=== PATIENT | male | born 1960 | race Caucasian/White ===

== ENCOUNTER 2017-05-18 05:26 | Day surgery (SDC) | payer BC, OTHER ==
[~2017-05-18] VITALS: Ht 182.9 cm; Wt 110.2 kg
--- NOTE | ~2017-05-18 | O ---
[facility] [place] [address] OPERATIVE REPORT Name: BELINDA GALAN Room #: [facility] Jeanine#: [id number] Admission: 05/18/17 Attend Phys: Jd Crump Discharge: 05/18/17 Date of : 56 Report #: [id number] THIS REPORT FOR: //name// CC: Jd Dunlap DATE OF SERVICE: 05/18/2017 PREOPERATIVE DIAGNOSES: Right shoulder pain, high-grade partial thickness rotator cuff tear, with shoulder osteoarthritis. POSTOPERATIVE DIAGNOSES: Right shoulder rotator cuff tear, medium-sized full-thickness; complex labral tear; mild glenohumeral joint chondromalacia; subacromial bursitis and impingement syndrome. PROCEDURES PERFORMED: Right shoulder arthroscopy, rotator cuff repair, subacromial decompression and extensive debridement. SURGEON: Jd Woody M.D. BARREL DRILLER: Heidi Sorensen PA-C. ANESTHESIA: General with preoperative interscalene block, ultrasound guided. FLUIDS: 900 mL crystalloid. ESTIMATED BLOOD LOSS: 5 mL. DESCRIPTION OF PROCEDURE: After proper identification of the patient and operative site in the preoperative holding area, the operative site was signed by myself. Prophylactic antibiotics given. The patient elected to receive an interscalene block after discussing the risks, benefits, alternatives and complications with anesthesia. The patient had been cleared preoperatively by his meeting coordinator, Dr. Porras. The patient was brought back to the operative suite. After induction of satisfactory general endotracheal anesthesia, the right shoulder was examined. It was stable throughout a full arc of motion, comparable to the preoperative assessment. The patient was carefully positioned in the left lateral decubitus position. Montemayor bag and axillary roll were utilized to support the torso. The right shoulder was sterilely prepped and draped in the usual manner and placed within 10 pounds of balanced arthroscopic suspension. Posterior portal was established. Joint was insufflated with an arthroscopic pump set at 40 mmHg. An anterior superior portal was created using a spinal needle for localization. Examination of the glenohumeral joint revealed some complex labral fraying and tearing about the anterior, superior and posterior superior quadrants. [facility] [address] [place] [address] OPERATIVE REPORT Name: BELINDA GALAN Room #: [facility] Andry.#: [id number] Admission: 05/18/17 Attend Phys: Jd Crump Discharge: 05/18/17 Date of : 56 Report #: [id number] labrum was debrided with a motorized shaver. Long head of biceps tendon was intact and stable on its attachment to the superior labrum. It was stable within the groove. No evidence of groove pathology was noted when it was pulled into the joint. Some mild chondral thinning and fibrillation was noted of the superior glenoid and superior humeral head. This fibrillated tissue was carefully debrided. Some intra-articular synovitis was also noted and this was carefully debrided. Upper border of the subscapularis was intact. There was evidence of a full-thickness, minimally retracted rotator cuff tear involving the more anterior supraspinatus. The remainder of the cuff tendons were intact. Arthroscope was then introduced in the subacromial space, where mildly thickened subacromial bursa was encountered. This was resected with a motorized shaver. There was fraying on the undersurface of the coracoacromial arch and prominence to the acromion was removed using a motorized bur. Approximately 3 mm of bone was resected here. The rotator cuff demonstrated a full-thickness medium-sized tear. It was approximately 15 mm in width. Some delamination was noted of its more anterior fibers of the supraspinatus. The rotator cuff footprint was debrided carefully with a sharp ring curette and motorized shaver. An additional lateral and posterolateral portal had been created. Through a separate portal of the lateral border of the acromion, a triple-loaded 5.5 mm [employer] [place] was inserted into its pre-tapped hole. This had excellent purchase. These limbs were passed in a horizontal mattress fashion, incorporating the delaminated portion of the tear. These were then tied and then a separate lateral row anchor was utilized, creating a double row construct. Repair construct was stable to probing. It was anatomically reduced. Subacromial space thoroughly irrigated with normal saline. Portals closed with simple nylon stitch. Sterile dressing was applied. The patient will be immobilized in a sling and abduction pillow for 6 weeks postoperatively. Qualified office clerk assistant was utilized throughout the entire procedure to aid in patient limb positioning, visualization with the arthroscope instrument, suture passage as well as closure and sling application. <ELECTRONICALLY SIGNED> By: Jd Woody MD 06/01/17 [id number] Jd Woody MD /iris
[~2017-05-18 05:26] MED LIST: AMLODIPINE BESY10 MG PO; ASPIR 8181 MG PO; AUGMENTIN 875875 MG PO; BENICAR20 MG PO; BYSTOLIC 5 MG5 MG; CARVEDILOL12.5 MG PO; DOXYCYCLINE 10100 MG PO; FISH OIL 1,001000 M2 PO; GLUCOPHAGE500 MG PO; HYDROCHLOROTH12.5 MG PO; HYDROCODON-ACE1 EAC8 PO; LIVALO4 MG PO; NEURONTIN 300300 M1 PO; PLAVIX 75 MG TA75 M1 PO; TRADJENTA5 MG PO; VICTOZA0.6 MG/0.1 SQ
[2017-05-18 06:26] VITALS: BP 135/80
[2017-05-18 09:36] VITALS: BP 135/80
== END 2017-05-18 15:00 | disposition home or self-care (01) ==
LOC: TBA 05:26 → OR 05:26
DX: M75.101 Unspecified rotator cuff tear or rupture of right shoulder, not specified as traumatic (principal); M19.011 Primary osteoarthritis, right shoulder; M94.211 Chondromalacia, right shoulder; M75.41 Impingement syndrome of right shoulder; M75.51 Bursitis of right shoulder; F17.200 Nicotine dependence, unspecified, uncomplicated; I73.9 Peripheral vascular disease, unspecified; E78.5 Hyperlipidemia, unspecified; Z98.890 Other specified postprocedural states; Z95.1 Presence of aortocoronary bypass graft; Z90.49 Acquired absence of other specified parts of digestive tract; E11.9 Type 2 diabetes mellitus without complications
CPT/HCPCS: 50010; 50101; 50172; 50386; 50417; 50597; 50935; 50950; 51038; 51445; 51847; 53610; 54170; 55430; 56525; 56527; 56530; 62110; 62900; 70005

== ENCOUNTER → 2018-01-08 | Outpatient (CLI) | payer BC, OTHER | LOC: HYPER 07:03 | DX: E11.621 Type 2 diabetes mellitus with foot ulcer (principal); L97.511 Non-pressure chronic ulcer of other part of right foot limited to breakdown of skin; E11.40 Type 2 diabetes mellitus with diabetic neuropathy, unspecified; L84 Corns and callosities; I10 Essential (primary) hypertension; I25.10 Atherosclerotic heart disease of native coronary artery without angina pectoris; E78.00 Pure hypercholesterolemia, unspecified; Z87.891 Personal history of nicotine dependence ==

== ENCOUNTER → 2018-01-22 | Outpatient (CLI) | payer BC, OTHER | LOC: HYPER 06:58 | DX: E11.621 Type 2 diabetes mellitus with foot ulcer (principal); L97.511 Non-pressure chronic ulcer of other part of right foot limited to breakdown of skin; L84 Corns and callosities; E11.40 Type 2 diabetes mellitus with diabetic neuropathy, unspecified; E78.00 Pure hypercholesterolemia, unspecified; I25.10 Atherosclerotic heart disease of native coronary artery without angina pectoris; I10 Essential (primary) hypertension; Z87.891 Personal history of nicotine dependence; Z95.1 Presence of aortocoronary bypass graft ==

== ENCOUNTER → 2018-02-12 | Outpatient (CLI) | payer BC, OTHER | LOC: HYPER 06:50 | DX: E11.621 Type 2 diabetes mellitus with foot ulcer (principal); L97.511 Non-pressure chronic ulcer of other part of right foot limited to breakdown of skin; E11.40 Type 2 diabetes mellitus with diabetic neuropathy, unspecified; E78.00 Pure hypercholesterolemia, unspecified; I25.10 Atherosclerotic heart disease of native coronary artery without angina pectoris; I10 Essential (primary) hypertension; L84 Corns and callosities; Z87.891 Personal history of nicotine dependence; Z95.1 Presence of aortocoronary bypass graft ==

== ENCOUNTER → 2018-03-04 | Outpatient (CLI) | payer BC, OTHER | LOC: HYPER 07:11 | DX: E11.621 Type 2 diabetes mellitus with foot ulcer (principal); L97.512 Non-pressure chronic ulcer of other part of right foot with fat layer exposed; L84 Corns and callosities; E11.40 Type 2 diabetes mellitus with diabetic neuropathy, unspecified; E78.00 Pure hypercholesterolemia, unspecified; I25.10 Atherosclerotic heart disease of native coronary artery without angina pectoris; I10 Essential (primary) hypertension; Z87.891 Personal history of nicotine dependence; Z95.1 Presence of aortocoronary bypass graft ==

== ENCOUNTER → 2018-03-25 | Outpatient (CLI) | payer BC, OTHER | LOC: MRI 07:31 | DX: M86.671 Other chronic osteomyelitis, right ankle and foot (principal); M62.571 Muscle wasting and atrophy, not elsewhere classified, right ankle and foot; M77.51 Other enthesopathy of right foot and ankle ==

== ENCOUNTER → 2018-03-26 | Outpatient (CLI) | payer BC, OTHER | LOC: HYPER 06:51 | DX: E11.621 Type 2 diabetes mellitus with foot ulcer (principal); L97.511 Non-pressure chronic ulcer of other part of right foot limited to breakdown of skin; L84 Corns and callosities; E11.40 Type 2 diabetes mellitus with diabetic neuropathy, unspecified; E78.00 Pure hypercholesterolemia, unspecified; I25.10 Atherosclerotic heart disease of native coronary artery without angina pectoris; I10 Essential (primary) hypertension; Z87.891 Personal history of nicotine dependence; Z95.1 Presence of aortocoronary bypass graft ==

== ENCOUNTER → 2018-04-23 | Outpatient (CLI) | payer BC, OTHER | LOC: HYPER 06:52 | DX: E11.621 Type 2 diabetes mellitus with foot ulcer (principal); L97.511 Non-pressure chronic ulcer of other part of right foot limited to breakdown of skin; L84 Corns and callosities; E11.40 Type 2 diabetes mellitus with diabetic neuropathy, unspecified; E78.00 Pure hypercholesterolemia, unspecified; I25.10 Atherosclerotic heart disease of native coronary artery without angina pectoris; I10 Essential (primary) hypertension; Z87.891 Personal history of nicotine dependence; Z95.1 Presence of aortocoronary bypass graft ==

== ENCOUNTER → 2018-05-14 | Outpatient (CLI) | payer BC, OTHER | LOC: HYPER 06:36 | DX: E11.621 Type 2 diabetes mellitus with foot ulcer (principal); L97.511 Non-pressure chronic ulcer of other part of right foot limited to breakdown of skin; L84 Corns and callosities; E11.40 Type 2 diabetes mellitus with diabetic neuropathy, unspecified; E78.00 Pure hypercholesterolemia, unspecified; I25.10 Atherosclerotic heart disease of native coronary artery without angina pectoris; I10 Essential (primary) hypertension; Z87.891 Personal history of nicotine dependence; Z95.1 Presence of aortocoronary bypass graft ==

== ENCOUNTER → 2018-06-04 | Outpatient (CLI) | payer BC, OTHER | LOC: HYPER 07:19 | DX: E11.621 Type 2 diabetes mellitus with foot ulcer (principal); L97.512 Non-pressure chronic ulcer of other part of right foot with fat layer exposed; L84 Corns and callosities; E11.40 Type 2 diabetes mellitus with diabetic neuropathy, unspecified; E78.00 Pure hypercholesterolemia, unspecified; I25.10 Atherosclerotic heart disease of native coronary artery without angina pectoris; I10 Essential (primary) hypertension; Z87.891 Personal history of nicotine dependence; Z95.1 Presence of aortocoronary bypass graft ==

== ENCOUNTER → 2018-06-18 | Outpatient (CLI) | payer BC, OTHER | LOC: HYPER 07:07 | DX: E11.621 Type 2 diabetes mellitus with foot ulcer (principal); L97.511 Non-pressure chronic ulcer of other part of right foot limited to breakdown of skin; L84 Corns and callosities; E11.40 Type 2 diabetes mellitus with diabetic neuropathy, unspecified; E78.00 Pure hypercholesterolemia, unspecified; I25.10 Atherosclerotic heart disease of native coronary artery without angina pectoris; I10 Essential (primary) hypertension; Z87.891 Personal history of nicotine dependence; Z95.1 Presence of aortocoronary bypass graft ==

== ENCOUNTER → 2018-07-02 | Outpatient (CLI) | payer BC, OTHER | LOC: HYPER 06:45 | DX: E11.621 Type 2 diabetes mellitus with foot ulcer (principal); L97.511 Non-pressure chronic ulcer of other part of right foot limited to breakdown of skin; L84 Corns and callosities; E11.40 Type 2 diabetes mellitus with diabetic neuropathy, unspecified; E78.00 Pure hypercholesterolemia, unspecified; I25.10 Atherosclerotic heart disease of native coronary artery without angina pectoris; I10 Essential (primary) hypertension; Z87.891 Personal history of nicotine dependence; Z95.1 Presence of aortocoronary bypass graft ==

== ENCOUNTER → 2018-07-18 | Outpatient (CLI) | payer BC, OTHER | LOC: HYPER 07:02 | DX: E11.621 Type 2 diabetes mellitus with foot ulcer (principal); L97.512 Non-pressure chronic ulcer of other part of right foot with fat layer exposed; L84 Corns and callosities; E11.40 Type 2 diabetes mellitus with diabetic neuropathy, unspecified; I25.10 Atherosclerotic heart disease of native coronary artery without angina pectoris; I10 Essential (primary) hypertension; E78.00 Pure hypercholesterolemia, unspecified; Z87.891 Personal history of nicotine dependence; Z95.1 Presence of aortocoronary bypass graft ==

== ENCOUNTER → 2018-07-30 | Outpatient (CLI) | payer BC, OTHER | LOC: HYPER 06:58 | DX: E11.621 Type 2 diabetes mellitus with foot ulcer (principal); L97.511 Non-pressure chronic ulcer of other part of right foot limited to breakdown of skin; E11.40 Type 2 diabetes mellitus with diabetic neuropathy, unspecified; L84 Corns and callosities; I25.10 Atherosclerotic heart disease of native coronary artery without angina pectoris; E78.00 Pure hypercholesterolemia, unspecified; Z87.891 Personal history of nicotine dependence ==

== ENCOUNTER → 2018-08-20 | Outpatient (CLI) | payer BC, OTHER | LOC: HYPER 06:38 | DX: E11.621 Type 2 diabetes mellitus with foot ulcer (principal); L97.511 Non-pressure chronic ulcer of other part of right foot limited to breakdown of skin; L84 Corns and callosities; E11.40 Type 2 diabetes mellitus with diabetic neuropathy, unspecified; E78.00 Pure hypercholesterolemia, unspecified; I25.10 Atherosclerotic heart disease of native coronary artery without angina pectoris; I10 Essential (primary) hypertension; Z87.891 Personal history of nicotine dependence; Z95.1 Presence of aortocoronary bypass graft ==

== ENCOUNTER → 2018-09-04 | Outpatient (CLI) | payer BC, OTHER | LOC: HYPER 06:37 | DX: E11.621 Type 2 diabetes mellitus with foot ulcer (principal); L97.511 Non-pressure chronic ulcer of other part of right foot limited to breakdown of skin; E11.40 Type 2 diabetes mellitus with diabetic neuropathy, unspecified; I10 Essential (primary) hypertension; L84 Corns and callosities; I25.10 Atherosclerotic heart disease of native coronary artery without angina pectoris; E78.00 Pure hypercholesterolemia, unspecified; Z87.891 Personal history of nicotine dependence ==

== ENCOUNTER → 2018-09-10 | Outpatient (CLI) | payer BC, OTHER | LOC: MRI 07:13 | DX: M86.171 Other acute osteomyelitis, right ankle and foot (principal); E11.621 Type 2 diabetes mellitus with foot ulcer; E11.40 Type 2 diabetes mellitus with diabetic neuropathy, unspecified; L97.511 Non-pressure chronic ulcer of other part of right foot limited to breakdown of skin; I10 Essential (primary) hypertension; E78.00 Pure hypercholesterolemia, unspecified ==

== ENCOUNTER → 2018-09-12 | Outpatient (CLI) | payer BC, OTHER | LOC: HYPER 06:44 | DX: E11.621 Type 2 diabetes mellitus with foot ulcer (principal); L97.511 Non-pressure chronic ulcer of other part of right foot limited to breakdown of skin; E11.40 Type 2 diabetes mellitus with diabetic neuropathy, unspecified; L84 Corns and callosities; I25.10 Atherosclerotic heart disease of native coronary artery without angina pectoris; I10 Essential (primary) hypertension; E78.00 Pure hypercholesterolemia, unspecified; Z87.891 Personal history of nicotine dependence ==

== ENCOUNTER → 2019-10-21 | Outpatient (CLI) | payer BC | LOC: HYPER 06:21 | PROVIDERS: ATTEND Emergency Medicine | DX: E11.621 Type 2 diabetes mellitus with foot ulcer (principal); L97.511 Non-pressure chronic ulcer of other part of right foot limited to breakdown of skin; L84 Corns and callosities; E78.00 Pure hypercholesterolemia, unspecified; I25.10 Atherosclerotic heart disease of native coronary artery without angina pectoris; I10 Essential (primary) hypertension; Z87.891 Personal history of nicotine dependence; Z95.1 Presence of aortocoronary bypass graft; Z89.421 Acquired absence of other right toe(s) ==

== ENCOUNTER → 2019-12-18 | Outpatient (CLI) | payer BC | LOC: HYPER 09:16 | PROVIDERS: ATTEND Emergency Medicine | DX: E11.621 Type 2 diabetes mellitus with foot ulcer (principal); L97.511 Non-pressure chronic ulcer of other part of right foot limited to breakdown of skin; S90.821A Blister (nonthermal), right foot, initial encounter; L84 Corns and callosities; I25.10 Atherosclerotic heart disease of native coronary artery without angina pectoris; I10 Essential (primary) hypertension; E78.00 Pure hypercholesterolemia, unspecified; Z87.891 Personal history of nicotine dependence; Z95.1 Presence of aortocoronary bypass graft; Z89.421 Acquired absence of other right toe(s); X58.XXXA Exposure to other specified factors, initial encounter; Y93.89 Activity, other specified; Y92.89 Other specified places as the place of occurrence of the external cause; Y99.8 Other external cause status ==

== ENCOUNTER → 2019-12-30 | Outpatient (CLI) | payer BC | LOC: SJCVCIMAG 08:35 | PROVIDERS: ATTEND Nuclear Medicine Nuclear Cardiology | DX: I65.21 Occlusion and stenosis of right carotid artery (principal); I73.9 Peripheral vascular disease, unspecified; Z95.820 Peripheral vascular angioplasty status with implants and grafts ==

== ENCOUNTER → 2020-01-07 | Outpatient (CLI) | payer BC | LOC: HYPER 12:35 | PROVIDERS: ATTEND Emergency Medicine | DX: E11.621 Type 2 diabetes mellitus with foot ulcer (principal); L97.512 Non-pressure chronic ulcer of other part of right foot with fat layer exposed; S90.821A Blister (nonthermal), right foot, initial encounter; L84 Corns and callosities; E78.00 Pure hypercholesterolemia, unspecified; I25.10 Atherosclerotic heart disease of native coronary artery without angina pectoris; I10 Essential (primary) hypertension; Z87.891 Personal history of nicotine dependence; Z95.1 Presence of aortocoronary bypass graft; Z89.421 Acquired absence of other right toe(s); X58.XXXA Exposure to other specified factors, initial encounter; Y93.89 Activity, other specified; Y92.89 Other specified places as the place of occurrence of the external cause; Y99.8 Other external cause status ==

== ENCOUNTER → 2020-04-13 | Outpatient (CLI) | payer BC, OTHER | LOC: ULTRA 07:53 | PROVIDERS: ATTEND Family Medicine | DX: M79.89 Other specified soft tissue disorders (principal) ==

== ENCOUNTER → 2020-07-12 | Outpatient (CLI) | payer BC, OTHER | LOC: HYPER 09:08 | PROVIDERS: ATTEND Emergency Medicine Emergency Medical Services | DX: E11.621 Type 2 diabetes mellitus with foot ulcer (principal); L97.512 Non-pressure chronic ulcer of other part of right foot with fat layer exposed; S91.101A Unspecified open wound of right great toe without damage to nail, initial encounter; L84 Corns and callosities; E66.9 Obesity, unspecified; E78.00 Pure hypercholesterolemia, unspecified; I25.10 Atherosclerotic heart disease of native coronary artery without angina pectoris; I10 Essential (primary) hypertension; Z68.30 Body mass index [BMI] 30.0-30.9, adult; Z87.891 Personal history of nicotine dependence; Z95.1 Presence of aortocoronary bypass graft; Z89.421 Acquired absence of other right toe(s); X58.XXXA Exposure to other specified factors, initial encounter; Y93.89 Activity, other specified; Y92.89 Other specified places as the place of occurrence of the external cause; Y99.8 Other external cause status ==

== ENCOUNTER → 2020-07-27 | Outpatient (CLI) | payer BC, OTHER | LOC: SJCVCIMAG 09:48 | PROVIDERS: ATTEND Nuclear Medicine Nuclear Cardiology | DX: I73.9 Peripheral vascular disease, unspecified (principal); M79.604 Pain in right leg; M79.605 Pain in left leg; Z95.828 Presence of other vascular implants and grafts ==

== ENCOUNTER → 2020-09-21 | Outpatient (CLI) | payer BC, OTHER | LOC: HYPER 09-17 08:56 | PROVIDERS: ATTEND Emergency Medicine | DX: E11.621 Type 2 diabetes mellitus with foot ulcer (principal); L97.512 Non-pressure chronic ulcer of other part of right foot with fat layer exposed; S91.101D Unspecified open wound of right great toe without damage to nail, subsequent encounter; L84 Corns and callosities; E66.9 Obesity, unspecified; E78.00 Pure hypercholesterolemia, unspecified; I25.10 Atherosclerotic heart disease of native coronary artery without angina pectoris; I10 Essential (primary) hypertension; Z68.30 Body mass index [BMI] 30.0-30.9, adult; Z87.891 Personal history of nicotine dependence; Z95.1 Presence of aortocoronary bypass graft; Z89.421 Acquired absence of other right toe(s); X58.XXXD Exposure to other specified factors, subsequent encounter ==

== ENCOUNTER → 2020-10-20 | Outpatient (CLI) | payer BC, OTHER | LOC: HYPER 07:47 | PROVIDERS: ATTEND Emergency Medicine | DX: E11.621 Type 2 diabetes mellitus with foot ulcer (principal); L97.512 Non-pressure chronic ulcer of other part of right foot with fat layer exposed; L84 Corns and callosities; E66.9 Obesity, unspecified; E78.00 Pure hypercholesterolemia, unspecified; I25.10 Atherosclerotic heart disease of native coronary artery without angina pectoris; I10 Essential (primary) hypertension; Z68.30 Body mass index [BMI] 30.0-30.9, adult; Z87.891 Personal history of nicotine dependence; Z95.1 Presence of aortocoronary bypass graft; Z89.421 Acquired absence of other right toe(s) ==

== ENCOUNTER → 2020-12-01 | Outpatient (CLI) | payer BC, OTHER | LOC: HYPER 07:48 | PROVIDERS: ATTEND Emergency Medicine | DX: E11.621 Type 2 diabetes mellitus with foot ulcer (principal); L97.512 Non-pressure chronic ulcer of other part of right foot with fat layer exposed; L84 Corns and callosities; E66.9 Obesity, unspecified; E78.00 Pure hypercholesterolemia, unspecified; I25.10 Atherosclerotic heart disease of native coronary artery without angina pectoris; I10 Essential (primary) hypertension; Z68.30 Body mass index [BMI] 30.0-30.9, adult; Z87.891 Personal history of nicotine dependence; Z95.1 Presence of aortocoronary bypass graft; Z89.421 Acquired absence of other right toe(s) ==

== ENCOUNTER → 2021-02-08 | Outpatient (CLI) | payer BC, OTHER | LOC: SJCVCIMAG 14:24 | PROVIDERS: ATTEND Nuclear Medicine Nuclear Cardiology | DX: I65.21 Occlusion and stenosis of right carotid artery (principal); I10 Essential (primary) hypertension; E78.00 Pure hypercholesterolemia, unspecified; Z95.828 Presence of other vascular implants and grafts; Z98.890 Other specified postprocedural states; Z95.1 Presence of aortocoronary bypass graft; I25.10 Atherosclerotic heart disease of native coronary artery without angina pectoris; I73.9 Peripheral vascular disease, unspecified; L98.499 Non-pressure chronic ulcer of skin of other sites with unspecified severity; M86.9 Osteomyelitis, unspecified; R53.83 Other fatigue; Z68.33 Body mass index [BMI] 33.0-33.9, adult; Z79.82 Long term (current) use of aspirin; Z79.899 Other long term (current) drug therapy ==

== ENCOUNTER → 2021-03-23 | Outpatient (CLI) | payer BC, OTHER | LOC: HYPER 08:17 | PROVIDERS: ATTEND Emergency Medicine | DX: E11.621 Type 2 diabetes mellitus with foot ulcer (principal); L97.511 Non-pressure chronic ulcer of other part of right foot limited to breakdown of skin; L84 Corns and callosities; E78.00 Pure hypercholesterolemia, unspecified; E66.9 Obesity, unspecified; I25.10 Atherosclerotic heart disease of native coronary artery without angina pectoris; I10 Essential (primary) hypertension; Z87.891 Personal history of nicotine dependence; Z95.1 Presence of aortocoronary bypass graft; Z89.421 Acquired absence of other right toe(s); Z68.30 Body mass index [BMI] 30.0-30.9, adult ==

== ENCOUNTER → 2021-03-24 | Outpatient (CLI) | payer OTHER | LOC: SJCVCIMAG 11:05 | PROVIDERS: ATTEND Internal Medicine Cardiovascular Disease | DX: I25.10 Atherosclerotic heart disease of native coronary artery without angina pectoris (principal); E78.5 Hyperlipidemia, unspecified; I10 Essential (primary) hypertension; K80.00 Calculus of gallbladder with acute cholecystitis without obstruction; E11.9 Type 2 diabetes mellitus without complications; I77.9 Disorder of arteries and arterioles, unspecified; I73.9 Peripheral vascular disease, unspecified; L98.499 Non-pressure chronic ulcer of skin of other sites with unspecified severity; M86.9 Osteomyelitis, unspecified; E78.00 Pure hypercholesterolemia, unspecified; Z09 Encounter for follow-up examination after completed treatment for conditions other than malignant neoplasm; Z95.1 Presence of aortocoronary bypass graft; M79.604 Pain in right leg; M79.605 Pain in left leg; R53.83 Other fatigue; R07.9 Chest pain, unspecified; Z68.33 Body mass index [BMI] 33.0-33.9, adult; Z98.890 Other specified postprocedural states; Z95.828 Presence of other vascular implants and grafts ==

== ENCOUNTER → 2021-05-16 | Outpatient (CLI) | payer BC, OTHER | LOC: HYPER 11:10 | PROVIDERS: ATTEND Emergency Medicine | DX: E11.621 Type 2 diabetes mellitus with foot ulcer (principal); L97.511 Non-pressure chronic ulcer of other part of right foot limited to breakdown of skin; L84 Corns and callosities; I25.10 Atherosclerotic heart disease of native coronary artery without angina pectoris; I10 Essential (primary) hypertension; E78.00 Pure hypercholesterolemia, unspecified; E66.9 Obesity, unspecified; Z87.891 Personal history of nicotine dependence; Z79.82 Long term (current) use of aspirin; Z79.899 Other long term (current) drug therapy; Z95.1 Presence of aortocoronary bypass graft; Z89.421 Acquired absence of other right toe(s) ==